=== PATIENT | female | born 1990 | race African-American/Black ===

== ENCOUNTER → 2017-01-18 | Emergency (ER) | payer OTHER ==
[~2017-01-18] MED LIST: PREN-129 PO
== END | disposition left against medical advice (07) ==
LOC: ER 19:41
DX: R10.84 Generalized abdominal pain (principal); R30.0 Dysuria; R05 Cough; R11.2 Nausea with vomiting, unspecified; R19.7 Diarrhea, unspecified; Z53.21 Procedure and treatment not carried out due to patient leaving prior to being seen by health care provider